=== PATIENT | male | born 1940 | race Caucasian/White ===

== ENCOUNTER 2022-01-08 22:30 | Outpatient (CLI) | payer MEDICARE, BC, SELFPAY | END 2022-01-08 22:31 | disposition home or self-care (01) | LOC: AMB 02-04 11:36 | PROVIDERS: Visit Provider Student in an Organized Health Care Education/Training Program | DX: S31.31XA Laceration without foreign body of scrotum and testes, initial encounter (principal) | CPT/HCPCS: A0425; A0429 ==

== ENCOUNTER 2022-02-15 17:18 | Outpatient (CLI) | payer MEDICARE, BC, SELFPAY | END 2022-02-15 17:19 | disposition home or self-care (01) | LOC: AMB 02-25 19:52 | PROVIDERS: Visit Provider Emergency Medicine Emergency Medical Services | DX: I95.9 Hypotension, unspecified (principal); F03.90 Unspecified dementia, unspecified severity, without behavioral disturbance, psychotic disturbance, mood disturbance, and anxiety; G20 Parkinson's disease | CPT/HCPCS: A0425; A0429 ==

== ENCOUNTER 2022-02-20 10:11 | Outpatient (CLI) | payer MEDICARE, BC, SELFPAY | END 2022-02-20 10:12 | disposition home or self-care (01) | PROVIDERS: Visit Provider Emergency Medicine Emergency Medical Services | DX: R56.9 Unspecified convulsions (principal) | CPT/HCPCS: A0425; A0427 ==

== ENCOUNTER 2022-03-06 12:55 | Outpatient (CLI) | payer MEDICARE, BC, SELFPAY | END 2022-03-06 12:56 | disposition home or self-care (01) | LOC: AMB 03-08 14:37 | PROVIDERS: Visit Provider Family Medicine | DX: R41.82 Altered mental status, unspecified (principal) | CPT/HCPCS: A0425; A0427 ==